=== PATIENT | male | born 1955 | race Caucasian/White ===

== ENCOUNTER 2017-04-26 12:40 | Emergency (ER) | payer MEDICARE, OTHER ==
[2017-04-26] MEDS ORDERED: Dexamethasone TAB* 4 MG PO ONE (13:35)
[2017-04-26] MEDS ORDERED: Cyclobenzaprine TAB* 10 MG PO ONE (13:36)
[2017-04-26] MEDS ORDERED: oxyCODONE/Acetamin 5/325 MG* TAB PO ONE (13:36)
--- NOTE | 2017-04-26 15:55 | RAD ---
HISTORY: Back pain, leg weakness, numbness COMPARISONS: None TECHNIQUE: The following sequences were obtained of the lumbar spine: Sagittal and axial T1- and T2-weighted images, coronal T2-weighted images, and sagittal STIR images. FINDINGS: SPINAL CORD, CONUS, AND CAUDA EQUINA: The visualized spinal cord, conus, and cauda equina are normal in caliber, position, and signal intensity. ALIGNMENT: There is grade 1 retrolisthesis of L5 on S1. VERTEBRAL BODIES: There is anterolateral marginal osteophyte formation. There are mild Modic type I reactive endplate changes at L3-L4 and L5-S1 JOINTS: There is multilevel facet osteoarthritic change MUSCULATURE: There is mild fatty infiltration INTERVERTEBRAL DISCS: There is diffuse loss of intervertebral disc height and T2 signal throughout the spine. AXIAL IMAGES: L1-L2: There is no disc herniation, spinal stenosis, or neuroforaminal narrowing. L2-L3: There is no disc herniation, spinal stenosis, or neuroforaminal narrowing. L3-L4: There is bilateral facet hypertrophy. There is mild left neural foraminal narrowing. There is no significant central canal stenosis. L4-L5: There is small central disc protrusion measuring 0.3 centers in depth. There is bilateral facet hypertrophy. There is mild bilateral neural foraminal narrowing. There is no severely central canal stenosis. L5-S1: There is bilateral facet hypertrophy with a mild disc bulge. There is marginal osteophyte formation at the neural foramina bilaterally. There is moderate bilateral neural foraminal narrowing. There is no cement central canal stenosis. SOFT TISSUES: The visualized soft tissues of the abdomen are unremarkable. OTHER: None. IMPRESSION: 1. DEGENERATIVE DISC DISEASE AND OSTEOARTHRITIS. 2. THERE IS MULTILEVEL NEURAL FORAMINAL NARROWING DESCRIBED ABOVE. 3. THERE IS NO SIGNIFICANT CENTRAL CANAL STENOSIS.
[2017-04-26 16:28] VITALS: BP 123/90
--- NOTE | 2017-04-26 20:00 | ED ---
Girish Suarez Benjamin, scribed for Gregg Rincon MD on 04/26/17 at 1338 . Back Pain - HPI Summary HPI Summary: 61yo male c/o 9 out of 10 scale lower back pain. Pt has hx of chronic lower back pain. Pts back pain radiates to his anterior thighs, sometimes causing his thighs to be numb, and weak at times. Pt has fallen twice due to weakness in the past several days. Denies any injuries from his falls. Numbness is now gone but pt still has pain. Hx of asthma and surgical hx of bilateral knee, shoulder operations and hernia repair. - History of Current Complaint Chief Complaint: EDBackInjuryPain Stated Complaint: BACK PAIN Time Seen by Provider: 04/26/17 13:27 Hx Obtained From: Patient, Family/Plane Tableman - Onset/Duration: Gradual Onset, Lasting Days, Still Present Onset/Duration: Started Days Ago, Atraumatic, Still Present Timing: Constant - back pain, Intermittent - numbness and weakness Back Pain Location: Is Discrete @ - lower back, Radiates To - anterior legs, bilateral Severity Initially: Severe Severity Currently: Severe Pain Intensity: 9 Pain Scale Used: 0-10 Numeric Aggravating Symptom(s): Nothing Alleviating Symptom(s): Nothing Associated Signs And Symptoms: Positive: Weakness, Numbness - Allergies/Home Medications Allergies/Adverse Reactions: Allergies Allergy/AdvReac Type Severity Reaction Status Date / Time Theophylline Allergy Severe tachycardia, Verified 04/26/17 12:42 palpitations grape juice Allergy Severe Difficulty Uncoded 04/26/17 12:42 Breathing bee sting Allergy Unknown Unknown Uncoded 04/26/17 12:42 Reaction Details PMH/Surg Hx/FS Hx/Imm Hx Endocrine/Hematology History: Denies: Hx Anticoagulant Therapy, Hx Diabetes, Hx Thyroid Disease Cardiovascular History: Denies: Hx Congestive Heart Failure, Hx Hypertension, Hx Pacemaker/ICD Respiratory History: Reports: Hx Asthma Denies: Hx Chronic Obstructive Pulmonary Disease (COPD) GI History: Reports: Hx Gastroesophageal Reflux Disease, Other GI Disorders - present right lower quad pain History: Denies: Hx Renal Disease Musculoskeletal History: Reports: Hx Arthritis - osteo, Hx Back Problems - pain , Other Musculoskeletal History - bilateral knee and shoulder repair Neurological History: Denies: Hx Dementia, Hx Seizures Psychiatric History: Denies: Hx Substance Abuse - Surgical History Surgery Procedure, Year, and Place: [place] (right) knee meniscus, {twice}, [place] (left) knee meniscus, 2010 [employer]right) shoulder tear, 2011 [employer] (left) shoulder tear, 2012 [employer]- umbilical hernia Infectious Disease History: No Infectious Disease History: Reports: Hx Shingles - 2011 Denies: Hx Hepatitis, Traveled Outside the [place] in Last 30 Days - Family History Known Family History: Negative: Cardiac Disease, Hypertension - Social History Occupation: Disabled Lives: With Family Alcohol Use: None Substance Use Type: Reports: None Smoking Status (MU): Unknown if Ever Smoked Review of Systems Constitutional: Negative Eyes: Negative ENT: Negative Cardiovascular: Negative Respiratory: Negative Gastrointestinal: Negative Genitourinary: Negative Positive: Myalgia - lower back pain radiating to the thighs Skin: Negative Positive: Weakness - bilateral LE, Numbness - bilateral LE Psychological: Normal All Other Systems Reviewed And Are Negative: Yes Physical Exam Vital Signs On Initial Exam: Initial Vitals Temp Pulse Resp BP Pulse Ox 98.9 F 81 16 146/79 94 04/26/17 12:43 04/26/17 12:43 04/26/17 12:43 04/26/17 12:43 04/26/17 12:43 - [place] Coma Scale Coma Scale Total: 15 Diagnostics - Vital Signs Vital Signs Temp Pulse Resp BP Pulse Ox 04/26/17 12:56 98.9 F 81 16 146/79 100 04/26/17 12:43 98.9 F 81 16 146/79 94 - Laboratory Lab Statement: Any lab studies that have been ordered have been reviewed, and results considered in the medical decision making process. - Additional Comments Diagnostic Additional Comments: MRI LUMBAR SPINE W/O IMPRESSION: 1. DEGENERATIVE DISC DISEASE AND OSTEOARTHRITIS. 2. THERE IS MULTILEVEL NEURAL FORAMINAL NARROWING DESCRIBED ABOVE. 3. THERE IS NO SIGNIFICANT CENTRAL CANAL STENOSIS. Re-Evaluation - Re-Evaluation First Eval Re-Evaluation Time: 16:29 Change: Improved Comment: Reviewed pts lab and imaging results with the pt. Back Pain Course/Dx - Course Course Of Treatment: 61 yr old with no acute finding on MRI. He is feeling better. DC home, fu with PMD. - Diagnoses Provider Diagnoses: Back pain Discharge - Discharge Plan Condition: Good Disposition: HOME Patient Education Materials: Acute Low Back Pain (ED) Referrals: Richar VIZCARRA,Abebe Rajan [Primary Care Provider] - Ryan Menchaca MD [Medical Doctor] - The documentation as recorded by the scribeGirish Benjamin accurately reflects the service I personally performed and the decisions made by me, Gregg Rincon MD.
== END 2017-04-26 16:52 | disposition home or self-care (01) ==
LOC: ED 12:40
DX: M54.5 Low back pain (principal); R53.1 Weakness; M51.36 Other intervertebral disc degeneration, lumbar region
CPT/HCPCS: 72148; 99282; A9270-GY; J8540

== ENCOUNTER 2017-08-21 12:08 | Emergency (ER) | payer MEDICARE, OTHER ==
[2017-08-21 12:30] VITALS: BP 148/84
--- NOTE | 2017-08-21 12:34 | UC ---
Lower Extremity/Ankle HPI - HPI Summary HPI Summary: Pt presents with right heel pain. He tells me that his pain started about 1 week ago. No injury. No increased activity. He has not taken anything for the pain, but has been using a cane to provide relief while ambulating. He denies fever, chills, redness, swelling, or bruising. - History of Current Complaint Chief Complaint: UCLowerExtremity Stated Complaint: R HEEL PAIN Hx Obtained From: Patient - Allergies/Home Medications Allergies/Adverse Reactions: Allergies Allergy/AdvReac Type Severity Reaction Status Date / Time Theophylline Allergy Severe tachycardia, Verified 08/21/17 12:30 palpitations grape juice Allergy Severe Difficulty Uncoded 08/21/17 12:30 Breathing bee sting Allergy Unknown Unknown Uncoded 08/21/17 12:30 Reaction Details PMH/Surg Hx/FS Hx/Imm Hx Respiratory History: Asthma GI/ History: Gastroesophageal Reflux Other History Of: Negative For: Anticoagulant Therapy - Surgical History Surgical History: Yes Surgery Procedure, Year, and Place: [place] (right) knee meniscus, {twice}, [facility] (left) knee meniscus, 2010 [employer]right) shoulder tear, 2010 [employer]- (left) shoulder tear, 2012 [employer]- umbilical hernia, radiofrequency procedure to remove nerve bundles in spine x2, surgery as a child for blood in urine, - Family History Known Family History: Negative: Cardiac Disease, Hypertension - Social History Occupation: Disabled Lives: With Family Alcohol Use: Occasionally Substance Use Type: None Smoking Status (MU): Unknown if Ever Smoked Review of Systems Constitutional: Negative Skin: Negative Neurovascular: Negative Musculoskeletal: Decreased ROM - Right foot, Other: - Pain right heel Neurological: Negative Psychological: Negative All Other Systems Reviewed And Are Negative: Yes Physical Exam Triage Information Reviewed: Yes Appearance: Well-Appearing, Well-Nourished Vital Signs: Initial Vital Signs Temp 98.0 F 08/21/17 12:24 Pulse 89 08/21/17 12:24 Resp 18 08/21/17 12:24 BP 148/84 08/21/17 12:24 Pulse Ox 97 08/21/17 12:24 Vital Signs Reviewed: Yes Respiratory: Positive: Chest non-tender, Lungs clear, Normal breath sounds, No respiratory distress, No accessory muscle use Cardiovascular: Positive: RRR, No Murmur, Pulses Normal Musculoskeletal: Positive: Strength Intact, No Edema, Other: - Right foot/ankle : Able to invert and wendy without pain or limitation. Significant pain in the posterior aspect of the right heel with dorsiflexion. TTP over insertion of achilles tendon. Barnes test negative. No obvious bony deformities or irregularities in the achilles tendon. No calf edema, erythema, or tenderness. Neurological: Positive: Alert, Other: - Sensations intact right foot and all digits. Psychological: Positive: Age Appropriate Behavior Skin: Negative: rashes Lower Extremity Course/Dx - Course Course Of Treatment: IMPRESSION: HEEL SPUR. NO ACUTE OSSEOUS INJURY. IF SYMPTOMS PERSIST, RECOMMEND REPEAT IMAGING. Suspect achilles tendinitis. Advised rest, ice, and elevation. NSAIDs for pain. Will MATT wrap here and have him continue using his cane. - Differential Dx/Diagnosis Differential Diagnosis/HQI/PQRI: Bursitis, Contusion, Dislocation, Fracture ( Closed), Sprain, Strain, Tendonitis Provider Diagnoses: Achilles tendinitis Discharge - Discharge Plan Condition: Stable Disposition: HOME Prescriptions: Meloxicam 7.5 mg PO BID PRN #30 tab PRN Reason: Pain Patient Education Materials: Achilles Tendinitis (ED) Referrals: Richar VIZCARRA,Abebe Holley. [Primary Care Provider] - Abebe Biggs MD [Medical Doctor] - If Needed Additional Instructions: If you develop a fever, SOB, chest pain, new or worsening symptoms - please call your PCP or go to the ED. Your blood pressure was mildly elevated at todays visit. Please see your primary provider within 4 weeks for recheck and re-evaluation. If your symptoms worsen or persist greater than 10-14 days, please call orthopedics at the number below to schedule an appointment.
--- NOTE | 2017-08-21 13:26 | RAD ---
HISTORY: Right foot pain and swelling COMPARISONS: None VIEWS: 3, Frontal, lateral, and oblique views of the right foot FINDINGS: BONE DENSITY: Normal. BONES: There is no displaced fracture. There is a posterior calcaneal enthesophyte. JOINTS: There is no arthropathy. ALIGNMENT: There is no dislocation. SOFT TISSUES: Unremarkable. OTHER FINDINGS: None. IMPRESSION: HEEL SPUR. NO ACUTE OSSEOUS INJURY. IF SYMPTOMS PERSIST, RECOMMEND REPEAT IMAGING.
== END 2017-08-21 13:55 | disposition home or self-care (01) ==
LOC: UCEAST 12:08
DX: M76.61 Achilles tendinitis, right leg (principal); Z88.8 Allergy status to other drugs, medicaments and biological substances; J45.909 Unspecified asthma, uncomplicated
CPT/HCPCS: 99212; G0463

== ENCOUNTER 2018-05-27 16:58 | Emergency (ER) | payer MEDICARE, OTHER ==
--- OUTSIDE RECORDS SUMMARY | 2018-05-27 17:05 | XMS REPORT ---
:1955 External Reference #:[id number] Author Organization [place] [facility] Address [address] [place] [address] [place] [address] Phone [phone] Care Team Providers Name Role Phone Abebe Mcqueen MD Primary Care Physician Unavailable Payers Type Date Identification Numbers Payment Provider Subscriber Medicare Primary Policy Number: [id number] Medicare Haile Santoro PayID: [id number] [facility] [address] [place] [address] Commercial Effective: 2016 Policy Number: [id number] [facility] [place] Haile Santoro Expires: 2018 Group Number: 80% [id number] [facility] PayID: [id number] [address] [place] [address] Commercial Effective: 2017 Policy Number: [id number] [facility] [place] Haile Santoro Expires: 2019 Group Number: 80% [address] PayID: [id number] [address] [place] [address] Problems Date Description Provider Status Onset: 07/10/2017 Neck pain Edward Galo M.D. 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 Active Onset: 07/10/2017 Vertebro-basilar artery syndrome Edward Galo M.D. Active Onset: 08/10/2017 Seizure Edward Galo M.D. Active Onset: 08/10/2017 Arthralgia of the ankle and/or foot Edward Galo M.D. Active Onset: 08/10/2017 Pain in left arm Edward Galo M.D. Active Family History Date Family Member(s) Problem(s) Comments General Breast Cancer General Gout Social History Type Date Description Comments Occupation Disabled ETOH Use Rarely consumes alcohol Smoking Patient has never smoked Recreational Drug Use Denies Drug Use Exercise Type/Frequency Exercises sporadically Allergies, Adverse Reactions, Alerts Date Description Reaction Status Severity Comments 05/28/2017 Theophyline active Medications Medication Date Status Form Strength Qnty SIG Indications Ordering Provider Methotrexate 03/26 Active Tablets 2.5mg 16tab take 4 M06. s capsules/t Casie Brizuela ablets by mouth once weekly tuesdays Folic Acid 03/26 Active Tablets 1mg 90tab take one M06. s capsule/corrie Brizuela M.D. blet daily by mouth Aspercreme Max 02/25 Active Liquid 16% 1unit apply - s twice Casie Brizuela Arthritis daily as Strength needed B12 Fast 12/19 Active Tablets 5000mcg 90tab sublingual Rey Dispers s daily Casie Brizuela Advair Diskus Active Aerosol 250-50mcg 2 times Rising,Katie / /Dose daily lle, BASS FISHER Omeprazole Active Capsules DR 40mg once daily Frederick, CHALO Alcantar Singulaeleanor Active Tablets 10mg 1 by mouth Unknown every day Zyrtec Allergy Active Tablets 10mg 1 by mouth Unknown every day Centrum Silver Active Tablets 1 by mouth Unknown every day Proventil HFA Active Aerosol 108(90Bas inhale two Unknown /0000 e) puffs by mcg/Act mouth four times a day as needed Aspirin Active Tablets DR 325mg 2 by mouth Unknown / every day prn Imodium A-D Active Capsules 2mg 1 by mouth Unknown twice a day, as needed diarrhea Flonase Active Suspension 50mcg/Act spray 1 Unknown Allergy Relief spray in each nostril twice daily Meloxicam Active Tablets 15mg 1/2 by Unknown /0000 mouth every other day Plaquenil 12/20 Hx Tablets 200mg 60tab 2 tabs by s mouth Casie Brizuela - daily 05/27 Sulfasalazine 12/19 Hx Tablets 500mg 60tab take one s tab by Casie Brizuela - mouth 12/20 daily for 1 week then 1 tab twice daily ongoing Ativan 07/10 Hx Tablets 2mg 2tabs take 1 30 G45.0 min prior Casie Galo - to MRI, 02/25 x 1 just prior to MRI if anxious. 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 Montelukast Hx Tablets 10mg Rising,Katie Sodium /0000 lle, BASS FISHER - 07/10 Oxycodone-Acet Hx Tablets 5-325mg 1-2 tabs Unknown aminophen /0000 by mouth - every 4-6 11/27 hours needed for pain Immunizations CPT Code Status Date Vaccine Reaction Lot # [id number] Given 05/27/2018 Influenza Virus Vaccine, no immediate reaction [id number] Quadrivalent, Split, noted Preservative Free [id number] Given 03/26/2018 Pneumococcal Conjugate no immediate reaction [id number] Vaccine 13 Valent For noted Intramuscular Use Vital Signs Date Vital Result Comment 05/27/2018 Height 72 inches 6'0" Weight 275.00 lb Heart Rate 82 /min BP Systolic Sitting 132 mmHg BP Diastolic Sitting 86 mmHg Respiratory Rate 14 /min Pain Level 5 BMI (Body Mass Index) 37.3 kg/m2 03/26/2018 Height 72 inches 6'0" Weight 278.38 lb Heart Rate 84 /min BP Systolic Sitting 136 mmHg BP Diastolic Sitting 82 mmHg Pain Level 7 O2 % BldC Oximetry 93 % BMI (Body Mass Index) 37.8 kg/m2 02/25/2018 Height 72 inches 6'0" Weight 277.00 lb Heart Rate 88 /min BP Systolic Sitting 138 mmHg BP Diastolic Sitting 94 mmHg Respiratory Rate 14 /min Pain Level 5 BMI (Body Mass Index) 37.6 kg/m2 12/19/2017 Height 72 inches 6'0" Weight 282.00 lb Heart Rate 86 /min BP Systolic Sitting 134 mmHg BP Diastolic Sitting 84 mmHg Respiratory Rate 14 /min Pain Level 8 BMI (Body Mass Index) 38.2 kg/m2 11/27/2017 Height 72 inches 6'0" Weight 276.00 lb Heart Rate 90 /min BP Systolic Sitting 125 mmHg BP Diastolic Sitting 80 mmHg Respiratory Rate 14 /min Pain Level 8 BMI (Body Mass Index) 37.4 kg/m2 09/24/2017 Height 72 inches 6'0" Weight 278.12 lb Heart Rate 76 /min BP Systolic Sitting 138 mmHg BP Diastolic Sitting 86 mmHg BMI (Body Mass Index) 37.7 kg/m2 08/10/2017 Height 72 inches 6'0" Weight 275.00 lb Heart Rate 78 /min BP Systolic 140 mmHg BP Diastolic 96 mmHg Respiratory Rate 14 /min BMI (Body Mass Index) 37.3 kg/m2 07/10/2017 Height 72 inches 6'0" Weight 270.00 lb Heart Rate 84 /min BP Systolic 146 mmHg BP Diastolic 88 mmHg Respiratory Rate 14 /min BMI (Body Mass Index) 36.6 kg/m2 05/28/2017 Height 72 inches 6'0" Weight 275.00 lb Heart Rate 84 /min BP Systolic Sitting 148 mmHg BP Diastolic Sitting 92 mmHg Pain Level 9 BMI (Body Mass Index) 37.3 kg/m2 Results Test Date Test Result H/L Range Note Laboratory test finding 05/14/2018 Erythrocyte Sed Rate <pending> C Reactive Protein <pending> Laboratory test finding 05/14/2018 Vitamin B12 <pending> Basic Metabolic Panel 02/08/2018 Sodium 140 mmol/L 139-145 1 Potassium 4.0 mmol/L 3.5-5.0 1 Chloride 108 mmol/L 101-111 1 Co2 Carbon Dioxide 24 mmol/L 22-32 1 Anion Gap 8 mmol/L 2-11 1 Glucose 85 mg/dL 70-100 1 Blood Urea Nitrogen 15 mg/dL 6-24 1 Creatinine 1.06 mg/dL 0.67-1.17 1 BUN/Creatinine Ratio 14.2 8-20 1 Calcium 9.2 mg/dL 8.6-10.3 1 Egfr Non- 71.3 >60 1 Egfr 91.7 >60 1, 2 Laboratory test finding 01/23/2018 Erythrocyte Sed Rate 15 mm/Hr 0-20 C Reactive Protein 6.33 mg/L High < 5.00 3 CBC Auto Diff 01/23/2018 White Blood Count 10.0 10^3/uL 3.5-10.8 Red Blood Count 5.16 10^6/uL 4.0-5.4 Hemoglobin 15.1 g/dL 14.0-18.0 Hematocrit 45 % 42-52 Mean Corpuscular Volume 87 fL 80-94 Mean Corpuscular Hemoglobin 29 pg 27-31 Mean Corpuscular HGB Conc 34 g/dL 31-36 Red Cell Distribution Width 14 % 10.5-15 Platelet Count 251 10^3/uL 150-450 Mean Platelet Volume 8.7 um3 7.4-10.4 Abs Neutrophils 6.3 10^3/uL 1.5-7.7 Abs Lymphocytes 2.1 10^3/uL 1.0-4.8 Abs Monocytes 1.0 10^3/uL High 0-0.8 Abs Eosinophils 0.5 10^3/uL 0-0.6 Abs Basophils 0 10^3/uL 0-0.2 Abs Nucleated RBC 0 10^3/uL Granulocyte % 63.4 % 38-83 Lymphocyte % 21.1 % Low 25-47 Monocyte % 10.3 % High 0-7 Eosinophil % 4.8 % 0-6 Basophil % 0.4 % 0-2 Nucleated Red Blood Cells % 0 Comp Metabolic Panel 01/23/2018 Sodium 141 mmol/L 139-145 Potassium 4.3 mmol/L 3.5-5.0 Chloride 106 mmol/L 101-111 Co2 Carbon Dioxide 27 mmol/L 22-32 Anion Gap 8 mmol/L 2-11 Glucose 78 mg/dL 70-100 Blood Urea Nitrogen 15 mg/dL 6-24 Creatinine 1.28 mg/dL High 0.67-1.17 BUN/Creatinine Ratio 11.7 8-20 Calcium 9.0 mg/dL 8.6-10.3 Total Protein 7.2 g/dL 6.4-8.9 Albumin 4.2 g/dL 3.2-5.2 Globulin 3.0 g/dL 2-4 Albumin/Globulin Ratio 1.4 1-3 Total Bilirubin 0.50 mg/dL 0.2-1.0 Alkaline Phosphatase 88 U/L 34-104 Alt 15 U/L 7-52 Ast 17 U/L 13-39 Egfr Non- 57.3 >60 Egfr 73.7 >60 4 Celiac Panel 11/27/2017 Tissue Transglutaminase IgA Ab <1.2 U/mL 5 Immunoglobulin A 281 mg/dL 61 - 356 Celiac Interpretation See Comment 6 Celiac Hla 11/27/2017 [id number] SEE BELOW 7 [id number] SEE BELOW 8 Celiac Gene Pairs Present? Yes Celiac Gene Interpretation See Comment 9 Laboratory test finding 11/27/2017 Rheumatoid Factor <10 IU/mL 0-14 10 Comp Metabolic Panel 11/27/2017 Sodium 137 mmol/L 133-145 Potassium 4.1 mmol/L 3.5-5.0 Chloride 104 mmol/L 101-111 Co2 Carbon Dioxide 23 mmol/L 22-32 Anion Gap 10 mmol/L 2-11 Glucose 79 mg/dL 70-100 Blood Urea Nitrogen 20 mg/dL 6-24 Creatinine 1.09 mg/dL 0.67-1.17 BUN/Creatinine Ratio 18.3 8-20 Calcium 9.4 mg/dL 8.6-10.3 Total Protein 7.4 g/dL 6.4-8.9 Albumin 4.1 g/dL 3.2-5.2 Globulin 3.3 g/dL 2-4 Albumin/Globulin Ratio 1.2 1-3 Total Bilirubin 0.60 mg/dL 0.2-1.0 Alkaline Phosphatase 91 U/L 34-104 Alt 18 U/L 7-52 Ast 19 U/L 13-39 Egfr Non- 69.2 >60 Egfr 89.0 >60 11 CBC Auto Diff 11/27/2017 White Blood Count 10.6 10^3/uL 3.5-10.8 Red Blood Count 5.30 10^6/uL 4.0-5.4 Hemoglobin 15.5 g/dL 14.0-18.0 Hematocrit 46 % 42-52 Mean Corpuscular Volume 87 fL 80-94 Mean Corpuscular Hemoglobin 29 pg 27-31 Mean Corpuscular HGB Conc 34 g/dL 31-36 Red Cell Distribution Width 13 % 10.5-15 Platelet Count 286 10^3/uL 150-450 Mean Platelet Volume 9 um3 7.4-10.4 Abs Neutrophils 7.4 10^3/uL 1.5-7.7 Abs Lymphocytes 2.0 10^3/uL 1.0-4.8 Abs Monocytes 1.0 10^3/uL High 0-0.8 Abs Eosinophils 0.3 10^3/uL 0-0.6 Abs Basophils 0 10^3/uL 0-0.2 Abs Nucleated RBC 0 10^3/uL Granulocyte % 69.4 % 38-83 Lymphocyte % 18.5 % Low 25-47 Monocyte % 9.0 % High 0-7 Eosinophil % 2.7 % 0-6 Basophil % 0.4 % 0-2 Nucleated Red Blood Cells % 0 Laboratory test finding 11/27/2017 Vitamin D, 1,25 Dihydroxy 60 pg/mL 18- 64 12 Vitamin B12 And Folate 11/27/2017 Vitamin B12 365 pg/mL 180-914 13 Serum Folic Acid (Folate) > 20.00 ng/mL >3.99 Laboratory test finding 11/27/2017 Erythrocyte Sed Rate 28 mm/Hr High 0- 20 C Reactive Protein 13.71 mg/L High < 5.00 14 TSH (Thyroid Stim Horm) 2.14 mcIU/mL 0.34-5.60 Anca AB Ser If 11/27/2017 C-Anca Negative Negative P-Anca Negative Negative 15 Hla B27 11/27/2017 Hla B27 Negative 16 Hla B27 Interp See Comment 17 Connective Tissue Panel 11/27/2017 Anti-Nuclear Antibody 0.7 U 18 Cyclic Citrullinated Peptide 23.4 U 19 Interpretation See Comment 20 Laboratory test finding 11/27/2017 Creatine Kinase(CK) 56 U/L 10-223 Angiotensin Converting Enzyme 33 U/L 8 - 53 21 Basic Metabolic Panel 07/12/2017 Sodium 140 mmol/L 133-145 Potassium 3.9 mmol/L 3.5-5.0 Chloride 105 mmol/L 101-111 Co2 Carbon Dioxide 27 mmol/L 22-32 Anion Gap 8 mmol/L 2-11 Glucose 86 mg/dL 70-100 Blood Urea Nitrogen 20 mg/dL 6-24 Creatinine 0.99 mg/dL 0.67-1.17 BUN/Creatinine Ratio 20.2 High 8-20 Calcium 9.2 mg/dL 8.6-10.3 Egfr Non- 77.4 >60 Egfr 99.5 >60 22 1 PLEASE CHECK LABS IN TWO WEEKS 2 Because ethnic data is not always readily available, this report includes an eGFR for both -Americans and non- Americans. The National Kidney Disease Education Program (NKDEP) does not endorse the use of the MDRD equation for patients that are not between the ages of 18 and 70, are , have extremes of body size, muscle mass, or nutritional status, or are non- or non-. According to the National Kidney Foundation, irrespective of diagnosis, the stage of the disease is based on the level of kidney function: Stage Description GFR(mL/min/1.73 m(2)) 1 Kidney damage with normal or decreased GFR 90 2 Kidney damage with mild decrease in GFR 60-89 3 Moderate decrease in GFR 30-59 4 Severe decrease in GFR 15-29 5 Kidney failure <15 (or dialysis) 3 Acute inflammation: >10.00 4 Because ethnic data is not always readily available, this report includes an eGFR for both -Americans and non- Americans. The National Kidney Disease Education Program (NKDEP) does not endorse the use of the MDRD equation for patients that are not between the ages of 18 and 70, are , have extremes of body size, muscle mass, or nutritional status, or are non- or non-. According to the National Kidney Foundation, irrespective of diagnosis, the stage of the disease is based on the level of kidney function: Stage Description GFR(mL/min/1.73 m(2)) 1 Kidney damage with normal or decreased GFR 90 2 Kidney damage with mild decrease in GFR 60-89 3 Moderate decrease in GFR 30-59 4 Severe decrease in GFR 15-29 5 Kidney failure <15 (or dialysis) 5 REFERENCE VALUE <4.0 (Negative) Test Performed by: [place] [address] 6 Negative serology. Celiac disease unlikely. However, approximately 10% of patients with celiac disease are seronegative. Also, patients who are already adhering to a gluten-free diet may be seronegative. If celiac disease is highly clinically suspected, consider HLA-DQ typing. Test Performed by: [place] [address] 7 RESULT: 01:02,03 REFERENCE VALUE Not Applicable 8 RESULT: 03:02,06:02 DQ Serologic Equivalent: 8,6 REFERENCE VALUE Not Applicable 9 These genes are permissive for celiac disease. The absence of HLA celiac permissive genes would make the presence of celiac disease unlikely. However, these genes can also be present in the normal population. ADDITIONAL INFORMATION Method: Molecular typing of HLA antigens performed using reverse SSOP and/or SSP methods, reported as serological equivalents and low to medium resolution molecular values. Performing Laboratory CLIA# [id number] Test Performed by: [facility] [address] [place] [address] 10 Performed by [facility], [address] [place] [address] [id number] [email or web address], Jorge A Lawton MD - Lab. Director Test Performed by: [facility] [address] [place] [id number] 11 Because ethnic data is not always readily available, this report includes an eGFR for both -Americans and non- Americans. The National Kidney Disease Education Program (NKDEP) does not endorse the use of the MDRD equation for patients that are not between the ages of 18 and 70, are , have extremes of body size, muscle mass, or nutritional status, or are non- or non-. According to the National Kidney Foundation, irrespective of diagnosis, the stage of the disease is based on the level of kidney function: Stage Description GFR(mL/min/1.73 m(2)) 1 Kidney damage with normal or decreased GFR 90 2 Kidney damage with mild decrease in GFR 60-89 3 Moderate decrease in GFR 30-59 4 Severe decrease in GFR 15-29 5 Kidney failure <15 (or dialysis) 12 ADDITIONAL INFORMATION This test was developed and its performance characteristics determined by [facility] in a manner consistent with CLIA requirements. This test has not been cleared or approved by the U.S. Food and Drug Administration. Test Performed by: [facility] [address] [place] [address] 13 Normal Range 180 to 914 Indeterminate Range 145 to 180 Deficient Range <145 14 Acute inflammation: >10.00 15 Negative for cANCA and pANCA patterns by immunofluorescence. ADDITIONAL INFORMATION This test was developed and its performance characteristics determined by [facility] in a manner consistent with CLIA requirements. This test has not been cleared or approved by the U.S. Food and Drug Administration. Test Performed by: [facility] - [address] [address] 16 REFERENCE VALUE Not Applicable 17 RESULT: HLA-B27 antigen was not detected. ADDITIONAL INFORMATION Method: Flow Cytometry Performing Laboratory CLIA# [id number] Test Performed by: [facility] - [address] [address] 18 REFERENCE VALUE <=1.0 (Negative) 19 Interpretation: Weak Positive (20.0-39.9) REFERENCE VALUE <20.0 (Negative) 20 RESULT: Compatible with rheumatoid arthritis. Test Performed by: [facility] - [address] [address] 21 Test Performed by: [address] [address] 22 Because ethnic data is not always readily available, this report includes an eGFR for both -Americans and non- Americans. The National Kidney Disease Education Program (NKDEP) does not endorse the use of the MDRD equation for patients that are not between the ages of 18 and 70, are , have extremes of body size, muscle mass, or nutritional status, or are non- or non-. According to the National Kidney Foundation, irrespective of diagnosis, the stage of the disease is based on the level of kidney function: Stage Description GFR(mL/min/1.73 m(2)) 1 Kidney damage with normal or decreased GFR 90 2 Kidney damage with mild decrease in GFR 60-89 3 Moderate decrease in GFR 30-59 4 Severe decrease in GFR 15-29 5 Kidney failure <15 (or dialysis) Procedures Date CPT Code Description Status 08/22/2017 12896 EEG Monitoring Computer Completed 07/12/2017 22185 EEG Recording Awake & Drowsy Completed Encounters Type Date Location Provider CPT E/M Dx Office Visit 03/26/2018 [facility] Rey Brizuela M.D. 89049 M06.09 10:40a Of [facility] Z79.899 E53.8 M54.5 Z23 Office Visit 02/25/2018 4:00p [facility] Rey Brizuela 66016 M06.09 Of [facility] Jason Z79.899 E53.8 Office Visit 12/19/2017 4:40p [facility] Rey Brizuela 66486 M06.09 Of [facility] Jason Z79.899 R76.0 E53.8 Office Visit 11/27/2017 9:00a [facility] Of Rey Brizuela 91462 M13.0 [facility] Jason M25.559 M54.5 R19.7 R20.8 R06.83 Office Visit 09/24/2017 10:00a [facility] Edward Galo 12926 R56.9 Casie M13.0 M54.2 M25.572 M79.602 R53.83 Office Visit 08/10/2017 10:15a [place] [facility] Edward Galo 28778 R56.9 Services Of Herminio Jason M25.572 M79.602 M13.0 Office Visit 07/10/2017 10:30a [facility] Edward Galo 27669 G45.0 Services Of [facility] Jason M54.2 G25.3 M54.5 R55 R20.2 Office Visit 05/28/2017 10:00a [facility] Of Atyia Horner PA-C [address]9790 G45.0 [facility] [place] M51.36 Office Visit 11/12/2012 9:26a [facility] Abebe Alvarez, [address] 786.09 [facility] Casie 780.79 780.52 Plan of Care Future Appointment(s):08/27/2018 2:20 pm - Rey Brizuela M.D. at [facility] [place]05/27/2018 - Rey Brizuela M.D.M06.09 Rheumatoid arthritis w/o rheumatoid factor, multiple sitesFollow up:Follow up in 3 months or sooner if imxihvT88.899 Other care home (current) drug [id number] Encounter for qhosbcekpanyA41.8 Other disturbances of skin sensationComments:Please go to the Urgent Care center to evaluate the symptoms that woke you up on Sunday night to evaluate for a cardiac or GI source of your symptoms
[2018-05-27 17:22] VITALS: BP 126/83
--- NOTE | 2018-05-27 17:23 | UC ---
Cardiac HPI - HPI Summary HPI Summary: A 62 y/o male accompanied by his presents to [facility] c/o chest pain reaching 2/10 in severity. Currently, the patient is resolved, however, he is noticing that the cough/rattling that occurs in 20-minute gaps as he feels something is filling up. According to the patient, he has a history of regular GERD, as once in a while, whenever he makes a mistake of eating after 1999, he is sure that he is going to wake up and feel the acid and hear it burning in his throat. This Sunday (05/25/2018), he woke up around [id number] (he is sure that he did not eat after 1999) where he experienced SOB. He characterized it as an axe-blade placed near bottom breast bone and someone stepping on it "with enthusiasm." He thought it was severe GERD, however, even with taking Pepto bismol and antacids, it did not alleviate the symptoms. As per , he has had trouble talking as he was breaking briskly. He did take his omeprazole as well. His symptoms started to subside around 0700 which is the time he takes his regular AM medications, so he is not sure what allievated the symptoms, however , he had to use his inhaler multiple times just to breathe. He noted that his lungs felt clear, but he kept hearing this gurgling/ratting sounds and with a intermittent cough, acid spewed into his throat. Patient was referred to [facility] by rheumatologists (arthritis) from his appointment. Pt concerned this could have been related to his heart and wants to be checked. No recurrent of heavy pain since early Sunday morning. Patient has been eating regularly with caution. No allergies to medications. No regular work. Takes Folic acid and methatrexate. Pt's medications reviewed this visit. - History of Current Complaint Chief Complaint: UCChestPain Stated Complaint: CHEST PAIN Time Seen by Provider: 05/27/18 17:15 Hx Obtained From: Patient Onset/Duration: Sudden Onset, Lasting Days, Still Present Initial Severity: Mild Current Severity: Mild Pain Intensity: 2 Aggravating Factor(s): Nothing Alleviating Factor(s): Nothing Associated Signs & Symptoms: Positive: SOB, Cough - Allergy/Home Medications Allergies/Adverse Reactions: Allergies Allergy/AdvReac Type Severity Reaction Status Date / Time theophylline Allergy Intermediate Tachycardia Verified 05/27/18 18:39 grape juice Allergy Severe Difficulty Uncoded 05/27/18 18:39 Breathing bee sting Allergy Unknown Unknown Uncoded 05/27/18 18:39 Reaction Details Home Medications: Home Medications metHOTREXate sodium [Trexall] 10 mg PO WEEKLY 05/27/18 [History Confirmed ] PMH/Surg Hx/FS Hx/Imm Hx - Additional Past Medical History Additional PMH: OSTEOARTHRITIS, HERNIA, HIGH CHOLESTEROL, ASTHMA DENIES HTN. NO STRESS TEST. Endocrine History: Diabetes - NEGATIVE GI/ History: Gastroesophageal Reflux Other History Of: Negative For: Anticoagulant Therapy - Surgical History Surgical History: Yes Surgery Procedure, Year, and Place: [place] (right) knee meniscus, {twice}, [facility] (left) knee meniscus, 2010 [employer]-(right) shoulder tear, 2010 [employer]- (left) shoulder tear, 2012 [employer]- umbilical hernia, radiofrequency procedure to remove nerve bundles in spine x2, surgery as a child for blood in urine, - Family History Known Family History: Negative: Cardiac Disease, Hypertension - Social History Alcohol Use: Occasionally Substance Use Type: None Smoking Status (MU): Never Smoked Tobacco Review of Systems Constitutional: Negative Skin: Negative Eyes: Negative ENT: Negative Respiratory: Shortness Of Breath, Cough Cardiovascular: Negative Gastrointestinal: Negative Genitourinary: Negative Motor: Negative Neurovascular: Negative Musculoskeletal: Negative Neurological: Negative Psychological: Negative Is Patient Immunocompromised?: No All Other Systems Reviewed And Are Negative: Yes Physical Exam - Summary Physical Exam Summary: Vital Signs Reviewed: Yes A+Ox3, no distress Eyes: Conjunctiva Clear, JOSELIN. EOM intact and full ENT: Hearing grossly normal TM x 2 clear, mmoist, uvula midline, no exudate, no erythema Neck: Positive: Supple Respiratory: Positive: No respiratory distress, No accessory muscle use + CTA throughout no w/r Cardiovascular: RRR nl s1, s2 no m/r CBT <2 sec abd soft + BS nt/nd no guarding, no distension Musculoskeletal Exam: HUERTA x 4 without difficulty Strength Intact, ROM Intact Neurological: Positive: Alert, + sensation throughout Psychological: Positive: Normal Response To Family Skin: Positive: no rash, no ecchymosis Triage Information Reviewed: Yes Vital Signs: Initial Vital Signs Temp 98.3 F 05/27/18 17:16 Pulse 80 05/27/18 17:16 Resp 18 05/27/18 17:16 BP 126/83 05/27/18 17:16 Pulse Ox 96 05/27/18 17:16 Vital Signs Reviewed: Yes Diagnostics - EKG EKG Comments: 1702: NO ACUTE ST - T WAVE CHANGES Cardiac Rate: NL - 77 BPM Cardiac Rhythm: Sinus: Normal - Assessment/Plan Course Of Treatment: pt with episode of heavy, sharp chest discomfort that woke him Sat. Pt took pepto and antacid without relief. Pt states since feels fatigue and sob, particularly with walking. Pt saw his rhuematologist who recommende dheget checked. EKG review - no acute changes. recommend pt to ED for further eval. Pt given ASA - driving. not currently with discomfort. pt comfortable and junie greement with plan - Clinical Impression Provider Diagnoses: resolved cp. FLORES Discharge - Sign-Out/Discharge Documenting (check all that apply): Patient Departure - [place]CHARGE-[place] [facility] All imaging exams completed and their final reports reviewed: No Studies - Discharge Plan Condition: Stable Disposition: HOME Patient Education Materials: Chest Pain (ED) Referrals: Richar VIZCARRA,Abebe Rajan [Primary Care Provider] - Additional Instructions: The doctor that evaluated you today thinks that you need additional testing that can be completed the emergency department. It is recommended that you go directly to emergency department for further evaluation. This evaluation included blood work or imaging. This testing will be directed and decided by the provider that evaluates you at the emergency department. If pain returns, you feel lightheaded, your develop shortness of breathe, or you have any other concerns while you are being driven to emergency department as recommended to pullover and contact 911. - Billing Disposition and Condition Condition: STABLE Disposition: Home - Attestation Statements Document Initiated by Scribe: Yes Documenting Scribe: Rosendo Varela Provider For Whom Abhilash is Documenting (Include Credential): Juana Carvajal MD Scribe Attestation: Rosendo Suarez, scribed for Juana Carvajal MD on 05/29/18 at 1444. Scribe Documentation Reviewed: Yes Provider Attestation: The documentation as recorded by the scribeRosendo accurately reflects the service I personally performed and the decisions made by me, Juana Carvajal MD
[2018-05-27] MEDS ORDERED: Aspirin 81 mg CHEW TAB* 81 MG TAB.CHEW PO ONE (18:05)
== END 2018-05-27 18:12 | disposition home or self-care (01) ==
LOC: UCEAST 16:58
CPT/HCPCS: 93005; 99212; A9270-GY; G0463

== ENCOUNTER 2018-05-27 18:32 | Emergency (ER) | payer MEDICARE, OTHER ==
[2018-05-27] MEDS ORDERED: Aspirin 81 mg CHEW TAB* 81 MG TAB.CHEW PO ONE (20:47)
[2018-05-27 21:12] LABS: ABS Basophils 0.1 10^3/ul (0-0.2); ABS Eosinophils 0.5 10^3/ul (0-0.6); ABS Neutrophils 6.4 10^3/ul (1.5-7.7); ABS Nucleated RBC 0 10^3/ul; Hematocrit 44 % (42-52); Mean Corpuscular HGB Conc 34 g/dl (31-36); Mean Corpuscular Hemoglobin 31 pg (27-31); Mean Corpuscular Volume 90 fL (80-94); Mean Platelet Volume 8.8 um3 (7.4-10.4); Nucleated Red Blood Cells % 0.1; Platelet Count 240 10^3/ul (150-450); Red Blood Count 4.92 10^6/ul (4.00-5.40); Red Cell Distribution Width 15 % (10.5-15); White Blood Count 9.9 10^3/ul (3.5-10.8)
[2018-05-27] MEDS ORDERED: Lidocaine 2% VISCOUS* 15 ML UDC PO ONE (21:13)
[2018-05-27] MEDS ORDERED: Al Hydrox/Mg Hydrox/Simet LIQ* 30 ML UDC PO ONE (21:14)
--- NOTE | 2018-05-27 21:14 | ED ---
HPI Chest Pain - HPI Summary HPI Summary: This pt is a 62 y/o male, accompanied by Cecile, [place] [facility] [place] [facility] for acid reflux and chest pain. Pt reports he woke up 2 days ago around 03:00 with centered chest pain and acid "like he never had before". He describes "axe-blade placed near bottom breast bone." Pt took Pepto and antacid that night with mild relief. Today he presents with worse acid reflux, he reports that every 20 minutes he coughs and has acid come up to his throat. He states "it feels like someone opened a battery and dumped acid down my throat." Pt notes his lungs have been clear all day. Pt saw Dr. Brizuela, reimbursement manager, for a routine visit today (for hx of RA) after lab drawn 1 week ago. He has hx of rheumatoid arthritis for which he takes methotrexate and folic acid. Pt was referred to Urgent Care for his chest pain. At Urgent Care pt was given aspirin at 18:10. He denies feeling chest pain currently. Denies nausea, vomiting, fever, chills. PMHx includes RA, osteoarthritis, hernia, asthma. He is on Prilosec every day. Pt sees a senior market intelligence consultant in [place], [place]. Vital signs while in the room: BP is 127/90, HR is 71 bpm, O2 sat is 95% on room air. - History of Current Complaint Chief Complaint: EDChestPainROMI Time Seen by Provider: 05/27/18 21:07 Hx Obtained From: Patient Onset/Duration: Started Days Ago, Still Present Timing: Lasting Days Current Severity: Mild Pain Intensity: 2 Pain Scale Used: 0-10 Numeric Chest Pain Location: Mid Sternal Chest Pain Radiates: No Character: Burning, Other: - axe-blade Aggravating Factor(s): Nothing Alleviating Factor(s): Nothing Associated Signs and Symptoms: Positive: Chest Pain, Cough, Other: - POS: acid reflux. Negative: Fever, Chills, Nausea, Vomiting - Allergy/Home Medications Allergies/Adverse Reactions: Allergies Allergy/AdvReac Type Severity Reaction Status Date / Time theophylline Allergy Intermediate Tachycardia Verified 05/27/18 18:39 grape juice Allergy Severe Difficulty Uncoded 05/27/18 18:39 Breathing bee sting Allergy Unknown Unknown Uncoded 05/27/18 18:39 Reaction Details PMH/Surg Hx/FS Hx/Imm Hx Previously Healthy: No Endocrine/Hematology History: Denies: Hx Anticoagulant Therapy, Hx Diabetes, Hx Thyroid Disease Cardiovascular History: Denies: Hx Congestive Heart Failure, Hx Hypertension, Hx Pacemaker/ICD Respiratory History: Reports: Hx Asthma Denies: Hx Chronic Obstructive Pulmonary Disease (COPD) GI History: Reports: Hx Gastroesophageal Reflux Disease History: Denies: Hx Renal Disease Musculoskeletal History: Reports: Hx Arthritis - osteo and RA, Other Musculoskeletal History - bilateral knee and shoulder repair Sensory History: Denies: Hx Hearing Aid Neurological History: Denies: Hx Dementia, Hx Seizures Psychiatric History: Reports: Hx Panic Disorder Denies: Hx Substance Abuse - Surgical History Surgery Procedure, Year, and Place: [place] (right) knee meniscus, {twice}, [facility] (left) knee meniscus, 2010 [employer]-(right) shoulder tear, 2010 [employer]- (left) shoulder tear, 2012 [employer]- umbilical hernia, radiofrequency procedure to remove nerve bundles in spine x2, surgery as a child for blood in urine, Infectious Disease History: No Infectious Disease History: Reports: Hx Shingles - 2011 Denies: Hx Hepatitis, Traveled Outside the [place] in Last 30 Days - Family History Known Family History: Negative: Cardiac Disease, Hypertension - Social History Lives: With Family Alcohol Use: Occasionally Substance Use Type: Reports: None Smoking Status (MU): Never Smoked Tobacco Review of Systems Negative: Fever, Chills Positive: Chest Pain Positive: Cough Gastrointestinal: Other - acid reflux Negative: Vomiting, Nausea Musculoskeletal: Negative Skin: Negative Neurological: Negative Psychological: Normal All Other Systems Reviewed And Are Negative: Yes Physical Exam - Summary Physical Exam Summary: Appearance: Well-appearing, moderate pain distress, well-nourished Skin: Warm, color reflects adequate perfusion, dry Head: Normal Head/Face inspection, atraumatic Eyes: Conjunctiva clear ENT: Normal inspection Neck: Supple, no nodes, no JVD Respiratory: Lungs clear, normal breath sounds, no respiratory distress Cardio: RRR, No murmur, pulses normal, brisk capillary refill Abdomen: Soft, nontender Bowel sounds: Present Musculoskeletal: Strength Intact/ROM intact, no calf tenderness, no edema. Psychological: Normal Neuro: Alert, muscle tone normal, no focal deficit Triage Information Reviewed: Yes Vital Signs On Initial Exam: Initial Vitals Temp Pulse Resp BP Pulse Ox 98.2 F 84 20 148/98 95 05/27/18 18:36 05/27/18 18:36 05/27/18 18:36 05/27/18 18:36 05/27/18 18:36 Vital Signs Reviewed: Yes Diagnostics - Vital Signs Vital Signs Temp Pulse Resp BP Pulse Ox 05/27/18 21:00 97.9 F 76 19 137/103 97 05/27/18 18:36 98.2 F 84 20 148/98 95 - Laboratory Result Diagrams: 05/27/18 20:57 05/27/18 20:57 Lab Statement: Any lab studies that have been ordered have been reviewed, and results considered in the medical decision making process. - Radiology Chest XR Xray Interpretation: No Acute Changes - negative chest XR. Radiology Interpretation Completed By: ED Physician - EKG 18:39 Cardiac Rate: NL - at 76 bpm EKG Rhythm: Sinus Rhythm ST Segment: Non-Specific Ectopy: None EKG Interpretation: nml AV/IV CT, nml QTc, and nml axis. EKG Comparison: No Significant Change - compared to prior today at 17:02 Re-Evaluation - Re-Evaluation First Eval Re-Evaluation Time: 22:10 Change: Improved Comment: c/o his usual low back pain that he attributes to his RA, and that he usually takes meloxicam 15mg orallly for. States his chest discomfort is gone, and he has not had the cough/acid taste since the GI cocktail. Informed of elevated trop 0.04. Second Eval Re-Evaluation Time: 23:10 Change: Worse Comment: States his "cough" has returned, and he feels SOB. No CP. Also feels a little dizzy. Exam: cor S1S2, lungs clear, abd soft nontender, no masses. Take omeprazole at home. Will try an H2 jarrod, famotidine 40mg po, as different class of drug to treat probable GERD. Pt declines inhaler, does not feel himself wheezing. BP 104/81, P 69, O2 sat 97% RA. Still awaiting 2nd troponin. Third Eval Re-Evaluation Time: 00:45 Change: Improved Comment: No chest pain. No SOB. No belching or burning in his chest. Second troponin is zero. MONIQUE score 20, low risk. No cardiac risk factors. Pt and agree with discharge. Chest Pain Course/Dx - Course Course Of Treatment: Pt medications reviewed this visit. Allergies noted. Elevated blood pressure is noted. Pt is a 62 y/o male, with hx of RA and immunosuppressed, c/o severe acid reflux and chest pain. Chest XR is negative. EKG is normal sinus rhythm at 76 bpm. In the ED course the pt was given GI cocktail. Pt was given aspirin at Urgent Care at 18:10. Pt discussed with Dr. Estrada who agrees pt is low risk. Advises another troponin. Pt given famotidine 40mg po for second episode of cough/burning with complete relief. Was SOB at the time, but no decrease O2 sat, and no wheezing at the time. Suspect GERD with low grade aspiration. Second trop is zero and pt remains pain free. Pt is DC'd home with . - Diagnoses Provider Diagnoses: Elevated blood pressure reading without diagnosis of hypertension, Chest pain, GERD (gastroesophageal reflux disease) Discharge - Sign-Out/Discharge Documenting (check all that apply): Patient Departure Signing out patient TO: Art Villalpando - pt not signed out. Pt DC'd home after second troponin is zero. - Discharge Plan Condition: Stable Disposition: HOME Patient Education Materials: Chest Pain (ED), Gastroesophageal Reflux Disease ( ED) Referrals: Richar VIZCARRA,Abebe Rajan [Primary Care Provider] - 1 Day Additional Instructions: You were given viscous lidocaine with mylanta plus with complete relief of your symptoms. Then a bit later you had the cough and burning return with shortness of breath and slight dizziness. Your vital signs were stable at that time. Your oxygen level was normal and you were not wheezing. You were then given famotidine 40mg orally and your symptoms resolved. You had no chest pain. Your first troponin level was 0.04, and your second troponin [address] Vazquez and Dr. Estrada agreed you were low risk for a cardiac event. You will need definite follow up with Dr. Mcqueen in the next 1-2 days for re- evaluation. Dr. Vazquez prescribe famotidine 40mg orally daily, and you may continue your omeprazole with this. You will also need definite GI follow up. Return to the ER, call 911, if you have new or worsening symptoms. - Billing Disposition and Condition Condition: STABLE Disposition: Home - Attestation Statements Document Initiated by Scribe: Yes Documenting Scribe: Danuta Mendoza Provider For Whom Scribe is Documenting (Include Credential): Dr. Connie Vazquez MD Scribe Attestation: Danuta Suarez scribed for Dr. Connie Vazquez MD on 05/28/18 at 0052. Scribe Documentation Reviewed: Yes Provider Attestation: The documentation as recorded by the Danuta campbell accurately reflects the service I personally performed and the decisions made by me, Dr. Connie Vazquez MD
[2018-05-27 21:18] LABS: INR 0.96 (0.77-1.02)
[2018-05-27 22:05] LABS: EGFR Non-African American 65.5 (>60)
[2018-05-27] MEDS ORDERED: Famotidine TAB* 20 MG PO ONE (23:14)
[2018-05-28 01:36] VITALS: BP 111/74
--- NOTE | 2018-05-28 07:59 | RAD ---
Indication: Chest pain. Dual energy PA views of the chest demonstrates cardiomegaly. Minimal bibasilar atelectasis is noted with no definite pneumonia. No prior study is available for comparison. IMPRESSION: Cardiomegaly with minimal bibasilar atelectasis. No definite pneumonia is noted. R0
== END 2018-05-28 01:37 | disposition home or self-care (01) ==
LOC: ED 18:32
DX: K21.9 Gastro-esophageal reflux disease without esophagitis (principal); R07.9 Chest pain, unspecified; R05 Cough; R03.0 Elevated blood-pressure reading, without diagnosis of hypertension; R06.02 Shortness of breath; J45.909 Unspecified asthma, uncomplicated
CPT/HCPCS: 36415; 71045; 80053; 83605; 83880; 84443; 84484; 85025; 85610; 85652; 86140; 93005; 99283; A9270-GY